=== PATIENT | female | born 1950 | race African-American/Black ===

== ENCOUNTER 2017-02-16 06:06 | Observation (INO) | payer OTHER ==
[2017-02-14 14:00] LABS: BASOPHILS 0.3 %; BASOPHILS ABSOLUTE 0.01 10/3/uL (0.0-0.16); EOSINOPHILS 5.4 %; HEMATOCRIT 37.6 % (36.0-48.0); HEMOGLOBIN 11.9 g/dL (12.0-16.0); IMMATURE GRANULOCYTES 0.3 %; IMMATURE GRANULOCYTES ABSOLUTE 0.01 10/3/uL (0.0-0.11); LYMPHOCYTES 35.7 %; LYMPHOCYTES ABSOLUTE 1.32 10/3/uL (0.67-4.30); MEAN CORPUSCULAR HEMOGLOB 24.1 pg (26.0-34.0); MEAN CORPUSCULAR VOLUME 76.3 fL (80-100); MEAN PLATELET VOLUME 11.1 fL (9.2-13.0); MONOCYTES 6.5 %; MONOCYTES ABSOLUTE 0.24 10/3/uL (0.21-1.20); NEUTROPHILS 51.8 %; NEUTROPHILS ABSOLUTE 1.92 10/3/uL (2.02-8.40); PLATELET COUNT 210 10/3/uL (150-400); RBC DISTRIBUTION WIDTH 15.2 % (12.0-16.0); RED CELL COUNT 4.93 10/6/uL (4.0-5.6)
[2017-02-14 14:02] LABS: MANUAL DIFF NO %; MEAN CORPUS HGB CONC 31.6 g/dL (32.0-36.0); WHITE BLOOD CELLS 3.7 10/3/uL (4.5-10.5)
[2017-02-14 14:19] LABS: A/G RATIO 1.3 (0.7-1.9); ALBUMIN 4.1 G/DL (3.5-5.0); ALKALINE PHOSPHATASE 64 U/L (45-117); BUN (BLOOD UREA NITROGEN) 14 MG/DL (6-23); CALCIUM, SERUM 9.6 MG/DL (8.5-10.4); CHLORIDE, SERUM 104 MMOL/L (96-112); CO2 (CARBON DIOXIDE) 31 MMOL/L (24-34); CREATININE 0.96 MG/DL (0.55-1.02); GFR AFRICAN AMERICAN 71 ML/MIN (>=60); GFR NON AFRICAN AMERICAN 61 ML/MIN (>=60); GLOBULIN 3.1 G/DL (2.5-4.1); GLUCOSE, SERUM 139 MG/DL (60-99); POTASSIUM, SERUM 3.5 MMOL/L (3.5-5.3); SGOT(AST) 10 U/L (5-40); SGPT(ALT) 15 U/L (5-65); SODIUM, SERUM 141 MMOL/L (135-148); TOTAL BILIRUBIN 0.7 MG/DL (0-1.2); TOTAL PROTEIN 7.2 G/DL (6.0-8.5)
--- NOTE | ~2017-02-16 | PREOPHP ---
PreOp History and Physical [address] [place]. [address] NAME: TIARA MCNEILL : 48 STATUS : PRE [facility]#: [id number] AGE: 66 ADM/REG DATE : MR#: [id number] REPORT SERV DATE: 02/08/17 DICTATED BY: FOREIGN CHOU III DATE: 02/08/17 REPORT STATUS : Draft TRANSCRIBED BY: MODEliazar DATE: 02/08/17 HISTORY OF PRESENT ILLNESS: This 66-year-old female comes to the operating room for repair of symptomatic recurrent incisional hernia. The patient has a supraumbilical and periumbilical incisional hernia. The hernia is associated with local pain and discomfort. The patient has had no nausea, vomiting, or obstructive symptoms. She comes to the operating room now for repair of this recurrent hernia. The patient has a chronic history of coughing. She has noticed this hernia occurred during vigorous coughing. PAST MEDICAL HISTORY: 1. Hypertension. 2. Ohc-ojpzmrv-esasracoc diabetes mellitus. 3. History of hyperlipidemia. ALLERGIES: NONE. MEDICATIONS: Metformin, Crestor, hydrochlorothiazide, amlodipine, omeprazole, losartan, aspirin, Zyrtec, vitamins. SOCIAL HISTORY: The patient is . She lives locally. She does not work. She has no history of tobacco or alcohol use. FAMILY HISTORY: Remarkable for heart disease. REVIEW OF SYSTEMS: The patient complains of reflux, indigestion, joint pain, back pain. PAST SURGICAL HISTORY: Laparotomy for right colectomy, incisional hernia repair, and total knee replacement. PHYSICAL EXAMINATION: GENERAL: This is a somewhat obese female, in no acute distress. She is alert and oriented x3. HEENT: Unremarkable. Cranial nerves 2 through 12 are normal. LUNGS: Clear. CARDIAC: Normal. ABDOMEN: Soft and nontender. The patient has a periumbilical and supraumbilical incisional hernia, which are connected. The fascial defect is some 3 to 4 cm in size. The hernia is reducible. ASSESSMENT: 1. A 66-year-old female with recurrent symptomatic periumbilical and supraumbilical incisional hernia. 2. Omf-brthdvu-dnzppynvy diabetes mellitus. 3. Hypertension. 4. Obesity. 5. Hyperlipidemia. PreOp History and Physical [address] [address] NAME: TIARA MCNEILL : 48 STATUS : PRE [facility]#: [id number] AGE: 66 ADM/REG DATE : MR#: [id number] REPORT SERV DATE: 02/08/17 DICTATED BY: FOREIGN CHOU III DATE: 02/08/17 REPORT STATUS : Draft TRANSCRIBED BY: MODEliazar DATE: 02/08/17 PLAN: The patient comes to the operating room now for repair of this hernia. This procedure, the risks, benefits, and alternatives, including not limited to the risk for bleeding, infection, enterotomy, injury to any abdominal structure, postop small bowel obstruction, ileus, seroma formation, hematoma formation, recurrence of the hernia, infection of the mesh, or enterocutaneous fistula requiring removal of the mesh, and unforeseen complications including deep venous thrombosis, pulmonary embolus, myocardial infarction, stroke, pneumonia, and , have been explained the patient prior to surgery. The expected length of recovery has been explained. The patient's questions have been answered. She clearly understands the risks and agrees to surgery as planned. ERICK/PREM Foreign Chou III, M.D. / [id number] CC: Foreign Chou III, M.D.
--- NOTE | ~2017-02-16 | OP ---
Record Of Operation [facility] [address] [place]. [address] NAME: TIARA MCNEILL : 48 STATUS : ADM Slade PAT#: [id number] AGE: 66 ADM/REG DATE : 02/16/17 MR#: [id number] REPORT SERV DATE: 02/16/17 DICTATED BY: FOREIGN CAMPBELL III DATE: 02/16/17 REPORT STATUS : Draft TRANSCRIBED BY: PREM DATE: 02/16/17 DATE OF PROCEDURE: 02/16/2017 PREOPERATIVE DIAGNOSIS: Symptomatic recurrent incisional hernia. POSTOPERATIVE DIAGNOSIS: Symptomatic recurrent incisional hernia. PROCEDURE: Open repair of recurrent symptomatic incisional hernia with bilateral external oblique muscle component separation and placement of a Ventralight Prolene mesh. ANESTHESIA: General with intubation. COMPLICATIONS: None. ESTIMATED BLOOD LOSS: 5 mL. SPECIMENS: None. DRAINS: Ketan-Gómez in subcutaneous tissue. LAP AND SPONGE COUNT: Correct x3. BRIEF HISTORY: This 66-year-old female presented with a recurrent symptomatic periumbilical incisional hernia. It was felt that open repair of this hernia was indicated. This procedure, the risks, benefits, and alternatives, including but not limited to the risk for bleeding, infection, enterotomy, injury to any abdominal structure, postop small bowel obstruction, ileus, seroma formation, hematoma formation, recurrence of the hernia, infection of the mesh or enterocutaneous fistula requiring removal of the mesh, and unforeseen complications including deep venous thrombosis, pulmonary embolus, myocardial infarction, stroke, pneumonia, and were fully and completely explained to the patient prior to the surgery. The expected length of recovery was explained. The patient's questions were answered. She understood the risks and agreed to the surgery as planned. DESCRIPTION OF PROCEDURE: After being properly identified and after discussing the risks and benefits of the surgery with her again in the preoperative area, and after identifying the hernia within the preoperative area, the patient was taken to the operating room and placed in the supine position on the operating room table. General anesthesia was administered and she was intubated without difficulty. The abdomen was prepped and draped sterilely in the usual fashion. After an appropriate "time-out" per JCAHO standards, a midline incision was made beginning several centimeters above the umbilicus and continued to just below the umbilicus, directly over the hernia and over the previous incision. The incision was continued through the subcutaneous tissue. The skin and subcutaneous tissue were very thin. Beneath this was a hernia with several loops of small bowel. Using sharp dissection, the bowel was dissected free from the surrounding tissues and reduced back into the abdominal cavity. The fascial defect was some 4 cm to 5 cm in size. Using sharp dissection, the skin and subcutaneous tissue around the defect anteriorly was mobilized. There were some Record Of Operation [address] [place]. [address] NAME: TIARA MCNEILL : 48 STATUS : ADM [facility]ade PAT#: [id number] AGE: 66 ADM/REG DATE : 02/16/17 MR#: [id number] REPORT SERV DATE: 02/16/17 DICTATED BY: FOREIGN CAMPBELL III DATE: 02/16/17 REPORT STATUS : Draft TRANSCRIBED BY: PREM DATE: 02/16/17 adhesions posterior to the defect, and these were carefully divided so as to define the fascial edges anteriorly and posteriorly. Using sharp dissection, the skin and subcutaneous tissue anterior to the fascia was mobilized widely on either side. This was done to allow for external oblique component separation. The dissection was continued wide to the edges of the external oblique fascia. The external oblique fascia was then divided along the length of the defect using the cautery. This resulted in relaxation of the fascia anteriorly and allowed it to be reapproximated 1 cm or 2 cm close to the midline. This was done bilaterally. A Ventralight Prolene mesh was then selected. This was placed beneath the defect posteriorly. This was placed so as to lie beneath the defect by 3 cm to 4 cm around the entire periphery of the defect. This was then secured around the edge of the defect with short segments of interrupted #1 Prolene sutures. Upon completion of this, the mesh lay nicely posterior to the defect. It was not twisted or kinked in any way. It was not under any tension. Hemostasis was assured. Ketan-Gómez drain was then brought through a separate stab wound and placed in the subcutaneous tissue. The subcutaneous tissue was closed with running 3-0 chromic suture. The skin was closed with a running subcuticular 4-0 Monocryl stitch. The incision was injected with 0.5% Marcaine. Dressings were applied. Anesthesia was reversed, and the patient was taken to the recovery room in stable condition. She tolerated the procedure well. Her family was informed the results of the surgery. The patient will remain in the hospital for postoperative care. RHJ/PREM Foreign Campbell III, M.D. / [id number] CC: Alicja Vasquez III, M.D.
[~2017-02-16 06:06] MED LIST: ACTOPLUS M15 MG/500 PO; ALLEGRA180 PO; ASAB PO; BENZEDREX NAS; COZ50 PO; CRESTOR5 MG PO; DIOVAN HC1 PO; FLEXI JOIN1 PO; FLONASE NAS; GARCINIA CAMBOGIA; GLUCOPHAGE1000 MG PO; HARD NAILS PO; HYDROCHLOROT25 MG PO; LORTAB 5 PO; MULTIPLE VIT PO; NORV5 PO; PERCOCET 10/3251 TAB PO; PERCOCET1 TA2 PO; PRILO PO; PRILOSEC40 MG PO; PROMEGA PO; ZOCOR40 PO; ZYRTEC ALLGY10 MG PO
[2017-02-17 07:42] LABS: BASOPHILS 0.1 %; BASOPHILS ABSOLUTE 0.01 10/3/uL (0.0-0.16); EOSINOPHILS 2.3 %; EOSINOPHILS ABSOLUTE 0.17 10/3/uL (0.0-0.53); HEMATOCRIT 35.5 % (36.0-48.0); HEMOGLOBIN 11.2 g/dL (12.0-16.0); IMMATURE GRANULOCYTES 0.3 %; IMMATURE GRANULOCYTES ABSOLUTE 0.02 10/3/uL (0.0-0.11); LYMPHOCYTES 11.7 %; LYMPHOCYTES ABSOLUTE 0.86 10/3/uL (0.67-4.30); MEAN CORPUS HGB CONC 31.5 g/dL (32.0-36.0); MEAN CORPUSCULAR VOLUME 76.2 fL (80-100); MEAN PLATELET VOLUME 10.6 fL (9.2-13.0); MONOCYTES 6.4 %; MONOCYTES ABSOLUTE 0.47 10/3/uL (0.21-1.20); NEUTROPHILS 79.2 %; NEUTROPHILS ABSOLUTE 5.79 10/3/uL (2.02-8.40); PLATELET COUNT 188 10/3/uL (150-400); RBC DISTRIBUTION WIDTH 15.4 % (12.0-16.0); RED CELL COUNT 4.66 10/6/uL (4.0-5.6)
[2017-02-17 07:43] LABS: WHITE BLOOD CELLS 7.3 10/3/uL (4.5-10.5)
[2017-02-17 07:44] LABS: MANUAL DIFF NO %
[2017-02-17 07:52] LABS: BUN (BLOOD UREA NITROGEN) 8 MG/DL (6-23); CALCIUM, SERUM 8.4 MG/DL (8.5-10.4); CHLORIDE, SERUM 107 MMOL/L (96-112); CO2 (CARBON DIOXIDE) 29 MMOL/L (24-34); CREATININE 0.92 MG/DL (0.55-1.02); GFR AFRICAN AMERICAN 75 ML/MIN (>=60); GFR NON AFRICAN AMERICAN 64 ML/MIN (>=60); GLUCOSE, SERUM 136 MG/DL (60-99); POTASSIUM, SERUM 3.6 MMOL/L (3.5-5.3); SODIUM, SERUM 141 MMOL/L (135-148)
[2017-02-17] MEDS ORDERED: PERCOCET 7.5/321 TAB PO (10:33)
== END 2017-02-17 14:52 | disposition home or self-care (01) ==
LOC: SDC 06:06 → SDC/OF 09:21 → 5SO 11:13
PROVIDERS: Surgery
PROC: 0WUF0JZ Supplement Abdominal Wall with Synthetic Substitute, Open Approach (ICD-10-PCS; principal; 2017-02-16 07:45)
DX: K43.2 Incisional hernia without obstruction or gangrene (principal); I10 Essential (primary) hypertension; E78.5 Hyperlipidemia, unspecified; K21.9 Gastro-esophageal reflux disease without esophagitis; M54.9 Dorsalgia, unspecified; M25.50 Pain in unspecified joint; E66.9 Obesity, unspecified; G43.909 Migraine, unspecified, not intractable, without status migrainosus; E11.40 Type 2 diabetes mellitus with diabetic neuropathy, unspecified; M79.89 Other specified soft tissue disorders; G89.29 Other chronic pain; Z79.84 Long term (current) use of oral hypoglycemic drugs; Z79.899 Other long term (current) drug therapy; Z79.82 Long term (current) use of aspirin; Z82.49 Family history of ischemic heart disease and other diseases of the circulatory system; Z90.49 Acquired absence of other specified parts of digestive tract; Z98.890 Other specified postprocedural states; Z68.30 Body mass index [BMI] 30.0-30.9, adult; Z88.5 Allergy status to narcotic agent; Z96.651 Presence of right artificial knee joint
CPT/HCPCS: 71020; 80048; 80053; 82962; 85025; 87641; 93005; 96374; 96375; 96376; A9270-GY; C1781; G0378; J0690; J1170; J2250; J2370; J2405; J2710; J3010